=== PATIENT | male | born 1985 | race African-American/Black ===

== ENCOUNTER 2017-03-20 10:53 | Emergency (ER) | payer OTHER ==
[2017-03-20 11:03] VITALS: BP 136/84; PULSE 74; TEMP 97.8; BMI 24.3
[2017-03-20] MEDS ORDERED: IBUPROFEN 600 MG TABLET (FP) PO ONE ×2 (12:35→12:38)
--- NOTE | 2017-03-20 12:35 | PDOC ---
History of Present Illness - General Chief Complaint: Pain Stated Complaint: LT FOOT PAIN Time Seen by Provider: 03/20/17 11:55 Past History - Past Medical History Allergies/Adverse Reactions: Allergies Allergy/AdvReac Type Severity Reaction Status Date / Time No Known Allergies Allergy Verified 03/20/17 11:00 Home Medications: Ambulatory Orders Ibuprofen 800 mg PO TID #30 tablet 03/20/17 COPD: No HTN: Yes - Suicide/Smoking/Psychosocial Hx Smoking History: Never smoked Have you smoked in the past 12 months: No Hx Alcohol Use: No Drug/Substance Use Hx: No Substance Use Type: None *Physical Exam - Vital Signs Last Vital Signs Temp Pulse Resp BP Pulse Ox 97.8 F 74 19 136/84 98 03/20/17 11:00 03/20/17 11:00 03/20/17 11:00 03/20/17 11:00 03/20/17 11:00 *DC/Admit/Observation/Transfer Diagnosis at time of Disposition: Toe pain, left - Discharge Dispostion Disposition: HOME Condition at time of disposition: Good Admit: No - Referrals Referrals: Huber Martinez MD [Primary Care Provider] - - Patient Instructions Additional Instructions: Your x-ray today was negative for fracture. Please take ibuprofen 800mg three times a day for your pain, not to exceed 3,000mg a day. Ice the toe. Wear supportive shoes. We will call you with your blood results. Follow up with your primary care doctor if your symptoms do not improve Return to the ED if you have worsening pain, redness,fevers, or any changes in your symptoms. - Post Discharge Activity Forms/Work/School Notes: Back to Work
== END 2017-03-20 13:04 | disposition home or self-care (01) ==
LOC: JERFT 10:53
DX: M79.675 Pain in left toe(s) (principal); I10 Essential (primary) hypertension
CPT/HCPCS: 36415; 73630-TC-LT; 84550; 99281-25

== ENCOUNTER 2017-08-27 09:35 | Emergency (ER) | payer OTHER ==
[2017-08-27 09:56] VITALS: BMI 24.9
[2017-08-27] MEDS ORDERED: METHOCARBAMOL 500 MG TABLET PO ONE (10:06)
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
[2017-08-27] MEDS ORDERED: METHOCARBAMOL 500 MG TABLET ONE (10:12)
[2017-08-27 12:22] VITALS: BP 145/89; PULSE 62; TEMP 98.1
== END 2017-08-27 12:10 | disposition home or self-care (01) ==
LOC: JER 09:35
DX: S09.90XA Unspecified injury of head, initial encounter (principal); M54.2 Cervicalgia; Y04.2XXA Assault by strike against or bumped into by another person, initial encounter; Y93.89 Activity, other specified; Y92.9 Unspecified place or not applicable; I10 Essential (primary) hypertension
CPT/HCPCS: 70450-TC; 72125-TC; 99282-25